=== PATIENT | female | born 1955 | race Caucasian/White ===

== ENCOUNTER → 2016-08-28 | Outpatient (CLI) | payer BC ==
[~2016-08-28] MED LIST: ASMIN/60 INH; BACL10TA PO; CALC1TAB9 PO; CHOL100010 PO; CHOL20007 PO; CLX/20 PO; COEN10CA5 PO; CYCL10TA6 PO; ESTR0.05 TOP; ESTR1DIS TOP; GADAVIST IV PRN; LACT10CA3 PO; LORA10TA5 PO; MAGN500T4 PO; METO25TA3 PO; MULT1CHW4 PO; MXL10 PO; NARA2.5T2 PO; OMEG10007 PO; PRVHFAIN INH; RIBO100T9 PO; SYN75 PO
--- NOTE | 2016-08-28 12:02 | DIAGNOSTIC IMAGING REPORT ---
MRI OF THE BRAIN WITHOUT AND WITH IV CONTRAST CLINICAL HISTORY: Headache, possible migraine. COMPARISON STUDY: No previous studies for comparison. TECHNIQUE: MRI of the brain was performed from the vertex to the skull base utilizing various T1 and T2 weighted sequences. Following the IV administration of 6 mL of Gadavist contrast, additional enhanced images were obtained. FINDINGS: Sagittal T1, axial diffusion, proton density and T2 weighted axial, coronal FLAIR, and pre and post axial T1-weighted images were acquired. These were supplemented with post gadolinium coronal T1 weighted images. No intra or extra-axial mass lesions are visualized. Axial diffusion-weighted images reveal no evidence of acute or subacute infarction. There is no evidence of ventricular dilatation. Proton density T2-weighted and FLAIR images reveal a tiny focus of increased FLAIR signal posterior to the fourth ventricle. There is a second focus of increased signal posterior to the left caudate abutting the left lateral ventricle. These are nonspecific and likely relate to small vessel perivascular change or migraines.. There are no abnormal flow voids. There is no evidence of pathologic enhancement. IMPRESSION: 1. 2 tiny foci of nonspecific increased T2 signal. 2. No evidence of intracranial mass 3. No evidence of acute or subacute infarction Electronically signed by: Darron Leon M.D. 08/28/2016 12:00 PM Dictated Date/Time: 08/28/2016 11:55 AM
== END | disposition home or self-care (01) ==
LOC: C.MRIBC 10:34
PROVIDERS: ATTEND Psychiatry & Neurology Neurology
DX: G43.909 Migraine, unspecified, not intractable, without status migrainosus (principal)

== ENCOUNTER → 2017-04-14 | Day surgery (SDC) | payer BC ==
[2017-03-17 10:12] VITALS: Ht 167 cm; Wt 61.4 kg
[~2017-04-14] VITALS: Ht 167 cm; Wt 61.4 kg
[~2017-04-14] MED LIST changes: +500ML BSS 0.3ML EPI 1:1000PF IRRIG ONE; +ACETAMINOPHEN 325 MG TAB PO PRN; +AMVISC PLUS 0.8ML SYRINGE INT OCU ONE; +ATROPINE SULFATE 0.1 MG/ML 5ML SYR IV PRN; +BSS FLUSH ONE; -CHOL100010 PO; -CYCL10TA6 PO; -ESTR1DIS TOP; +EpHEDrine SULFATE INJ 50 MG/ML AMP IV PRN; +EpINEphrine INJ 1MG/ML AMP 1 MG/ML AMP ONE; -GADAVIST IV PRN; +LACTATED RINGER'S 1000ML 500 ML IV SCH; +LIDOCAINE 3.5% OPH GEL PER APPLICATION CHARGE ONE; +LIDOCAINE HCL 1% MPF 2 ML VIAL ONE; -LORA10TA5 PO; +MIDAZOLAM HCL 1 MG/ML 2ML VIAL ONE; -MXL10 PO; +OCUCOAT 1 ML SOLN IO ONE; +POVIDONE-IODINE OP SOLN 30 ML BTL ONE; +PROPARACAINE 0.5% OP SOLN PER DROP CHARGE OPR SCH; +TOBRAMYCIN/DEXAMETHASONE OPH OINT PER APPLN CHARGE ONE
[2017-04-14] MEDS: PHENYLEPHRINE HCL 2.5% OP SOLN PER DROP CHARGE OPR SCH ×2 (09:44→09:49)
[2017-04-14] MEDS: TROPICAMIDE 1% OP SOLN PER DROP CHARGE OPR SCH ×2 (09:45→09:50)
[2017-04-14] MEDS: CYCLOPENTOLATE HCL 1% OP SOLN PER DROP CHARGE OPR SCH ×2 (09:46→09:52)
[2017-04-14] MEDS: KETOROLAC 0.5% OP SOLN PER DROP CHARGE OPR SCH ×2 (09:47→09:53)
[2017-04-14] MEDS: GATIFLOXACIN OP SOLN PER DROP CHARGE OPR SCH ×2 (09:48→09:59)
--- NOTE | 2017-04-14 10:08 | History & Physical Bridge - SC ---
H&P Re-Evaluation Bridge Note: I have examined the patient, reviewed the History & Physical and in the interval since the performance of the History & Physical I have noted the following changes of clinical significance: No changes noted
--- NOTE | 2017-04-14 10:56 | Discharge Instructions-SurgCtr ---
Discharge Instructions Date of Service Apr 14, 2017. Visit Reason for Visit: Cataract Right Eye Discharge Discharge Diagnosis / Problem: cataract Discharge Goals Goal(s): Improve function Activity Recommendations Activity Limitations: per Instructions/Follow-up section Anesthesia . Post Anesthesia Instructions: If you have had General Anesthesia or IV Sedation: * Do not drive today. * Resume driving when surgeon permits. * Do not make important decisions or sign legal documents today. * Call surgeon for: 1. Temperature elevations greater than 101 degrees F. 2. Uncontrollable pain. 3. Excessive bleeding. 4. Persistent nausea and vomiting. 5. Medication intolerance (nausea, vomiting or rash). * For nausea and vomiting use only clear liquids such as: tea, soda, bouillon until nausea subsides, then gradually increase diet as tolerated. * If you have any concerns or questions, call your surgeon's office. If physician is unavailable and it is an emergency, call 911 or go to the nearest emergency room. . Instructions / Follow-Up Instructions / Follow-Up ACTIVITY RECOMMENDATIONS: * No strenuous lifting, jogging or running for 4 days * No swimming or yard work for 1 week. * Limited bending is permitted, such as putting on shoes. RETURN TO SCHOOL/WORK: No work until seen by physician in office. MEDICATIONS: Resume previous medications unless instructed otherwise by your surgeon. This includes eye drops for glaucoma. Zymaxid/Gatifloxacin (garcia cap) - one drop every 2 hours until bedtime Nevanac/Ilevro/Prolensa/Ketorolac (phillips cap) - one drop every 4 hours until bedtime Prednisolone/Durezol (white/pink cap, SHAKE WELL) - one drop every 2 hours until bedtime Starting tomorrow - all 3 drops every 4 hours until seen in the office Optive drops - as needed for discomfort SPECIAL CARE INSTRUCTIONS: * Wear eyeshield when sleeping, for four nights. * You may wear your own glasses or sunglasses while awake. * You may read or watch TV * You may shower and wash your face, but be gentle around the eye and pat dry. * Blurry vision and mild irritation are normal. * Call office if pain is more severe or vision becomes dark at . FOLLOW UP VISIT: Follow-up with Dr Lee tomorrow. Diet Recommendations Home Diet: resume previous diet Procedures Procedures Performed: Right Cataract Phacoemulsification With Intraocular Lens Implant Pending Studies Studies pending at discharge: no Medical Emergencies . Who to Call and When: Medical Emergencies: If at any time you feel your situation is an emergency, please call 911 immediately. . Non-Emergent Contact Non-Emergency issues call your: Scheduling Assistant . . "Provider Documentation" section prepared by Tejas Lee. .
--- NOTE | 2017-04-14 10:57 | [facility] Operative Report ---
Operative Report Date of Service Apr 14, 2017. Operative Report 1. PREOPERATIVE DIAGNOSIS: Cataract of the right eye. 2. POSTOPERATIVE DIAGNOSIS: Same. 3. PROCEDURE: Phacoemulsification with intraocular lens implantation of the right eye. SURGEON: Dr. Tejas Lee. ANESTHESIA: Topical Lidocaine gel, 1% Non- Preserved intracameral Lidocaine, and monitored intravenous sedation. INDICATIONS FOR THE PROCEDURE: The patient is a 61 - year-old female with a history of cataract of the right eye causing significant visual impairment. The details of the proposed procedure were explained to the patient who asked appropriate questions and following discussion of all risks, benefits and alternatives agreed to have the procedure done. 4. OPERATION AND FINDINGS: DESCRIPTION OF PROCEDURE: After informed consent was obtained, the patient was brought to the Operating Room at the [facility]. The patient was placed in a supine position and then the right eye was prepped and draped in the usual sterile fashion for intraocular surgery. A drop of topical Lidocaine gel was placed in the operative eye. A wire lid speculum was then placed in the fornices. A corneal paracentesis was then created temporally. The Non-Preserved Lidocaine was then instilled into the anterior chamber. The anterior chamber was then pressurized with viscoelastic. A 2.0 mm clear corneal incision was then created temporally. A cystotome was inserted into the anterior chamber and used to create a tear in the anterior lens capsule. This capsular tear was then used to create a small flap and the flap was dragged in a counterclockwise direction in order to create a continuous curvilinear capsulorrhexis. Hydrodissection was accomplished with balanced salt solution. Phacoemulsification of the lens nucleus was then performed in a standard eufwzu-vya-yqqviim technique. The phaco time was 18 seconds with an average power of 10 %. The remaining cortical material was removed using irrigation aspiration. The capsular bag was then filled with viscoelastic. A Bausch & Lomb MI60L +15.0 diopters lens was then loaded into the injector and injected into the capsular bag. The remaining viscoelastic was removed with the irrigation aspiration handpiece. The wound was hydrated and then checked and found to be watertight. The intraocular pressure was checked and found to be adequate. The wire lid speculum was removed and the patient's face was cleaned and dried. TobraDex ointment was placed in the inferior fornix. The patient was discharged to the Recovery Room having tolerated the procedure well. There were no complications. The patient will be seen tomorrow in the office for follow-up. I attest to the content of the Intraoperative Record and any orders documented therein. Any exceptions are noted below.
--- NOTE | 2017-04-14 11:23 | Anesthesia Progress Nt - [facility] ---
Anesthesia Post Op Note Date & Time Apr 14, 2017 at 11:23 Vital Signs Pain Intensity: 0 Vital Signs Past 12 Hours Date Time Temp Pulse Resp B/P (MAP) Pulse Ox O2 Delivery O2 Flow Rate FiO2 04/14/17 10:59 36.6 51 12 122/80 (94) 98 Room Air 04/14/17 09:37 36.5 79 16 103/65 (78) 96 Room Air Notes Mental Status: alert / awake / arousable, participated in evaluation Pt Amnestic to Procedure: Yes Nausea / Vomiting: adequately controlled Pain: adequately controlled Airway Patency, RR, SpO2: stable & adequate BP & HR: stable & adequate Hydration State: stable & adequate Anesthetic Complications: no major complications apparent
[2017-04-14 11:30] VITALS: BP 127/68; PULSE 53; O2SAT 98
== END | disposition home or self-care (01) ==
LOC: X.SURG 09:23
PROVIDERS: ATTEND Ophthalmology
DX: H26.9 Unspecified cataract (principal); J45.909 Unspecified asthma, uncomplicated; E03.9 Hypothyroidism, unspecified; Z90.710 Acquired absence of both cervix and uterus; Z80.1 Family history of malignant neoplasm of trachea, bronchus and lung; Z80.3 Family history of malignant neoplasm of breast

== ENCOUNTER → 2017-04-28 | Day surgery (SDC) | payer BC ==
[2017-04-21 12:47] VITALS: Ht 171.5 cm; Wt 61.4 kg
[~2017-04-28] VITALS: Ht 171.5 cm; Wt 61.4 kg
[~2017-04-28] MED LIST changes: +PHENYLEPHRINE HCL 10% OP SOLN PER DROP CHARGE OPL SCH; +PROPARACAINE 0.5% OP SOLN PER DROP CHARGE OPL SCH; -PROPARACAINE 0.5% OP SOLN PER DROP CHARGE OPR SCH
[2017-04-28] MEDS: PHENYLEPHRINE HCL 2.5% OP SOLN PER DROP CHARGE OPL SCH ×2 (08:37→08:42)
[2017-04-28] MEDS: TROPICAMIDE 1% OP SOLN PER DROP CHARGE OPL SCH ×2 (08:38→08:43)
[2017-04-28] MEDS: CYCLOPENTOLATE HCL 1% OP SOLN PER DROP CHARGE OPL SCH ×2 (08:39→08:44)
[2017-04-28] MEDS: GATIFLOXACIN OP SOLN PER DROP CHARGE OPL SCH ×2 (08:40→08:50)
[2017-04-28] MEDS: KETOROLAC 0.5% OP SOLN PER DROP CHARGE OPL SCH ×2 (08:41→08:45)
--- NOTE | 2017-04-28 08:49 | History & Physical Bridge - SC ---
H&P Re-Evaluation Bridge Note: I have examined the patient, reviewed the History & Physical and in the interval since the performance of the History & Physical I have noted the following changes of clinical significance: Diagnosis: Left Cataract Procedure: Left Cataract Removal with Lens Implant No changes noted
--- NOTE | 2017-04-28 09:34 | Discharge Instructions-SurgCtr ---
Discharge Instructions Date of Service Apr 28, 2017. Visit Reason for Visit: Cataract Left Eye Discharge Discharge Diagnosis / Problem: cataract Discharge Goals Goal(s): Improve function Activity Recommendations Activity Limitations: per Instructions/Follow-up section Anesthesia . Post Anesthesia Instructions: If you have had General Anesthesia or IV Sedation: * Do not drive today. * Resume driving when surgeon permits. * Do not make important decisions or sign legal documents today. * Call surgeon for: 1. Temperature elevations greater than 101 degrees F. 2. Uncontrollable pain. 3. Excessive bleeding. 4. Persistent nausea and vomiting. 5. Medication intolerance (nausea, vomiting or rash). * For nausea and vomiting use only clear liquids such as: tea, soda, bouillon until nausea subsides, then gradually increase diet as tolerated. * If you have any concerns or questions, call your surgeon's office. If physician is unavailable and it is an emergency, call 911 or go to the nearest emergency room. . Diet Recommendations Home Diet: resume previous diet Procedures Procedures Performed: Left Cataract Phacoemulsification With Intraocular Lens Implant Pending Studies Studies pending at discharge: no Medical Emergencies . Who to Call and When: Medical Emergencies: If at any time you feel your situation is an emergency, please call 911 immediately. . Non-Emergent Contact Non-Emergency issues call your: Principal Engineer . . "Provider Documentation" section prepared by Tejas Lee. .
--- NOTE | 2017-04-28 09:35 | [facility] Operative Report ---
Operative Report Date of Service Apr 28, 2017. Operative Report 1. PREOPERATIVE DIAGNOSIS: Cataract of the left eye. 2. POSTOPERATIVE DIAGNOSIS: Same. 3. PROCEDURE: Phacoemulsification with intraocular lens implantation of the left eye. SURGEON: Dr. Tejas Lee. ANESTHESIA: Topical Lidocaine gel, 1% Non- Preserved intracameral Lidocaine, and monitored intravenous sedation. INDICATIONS FOR THE PROCEDURE: The patient is a 61 - year-old female with a history of cataract of the left eye causing significant visual impairment. The details of the proposed procedure were explained to the patient who asked appropriate questions and following discussion of all risks, benefits and alternatives agreed to have the procedure done. 4. OPERATION AND FINDINGS: DESCRIPTION OF PROCEDURE: After informed consent was obtained, the patient was brought to the Operating Room at the [facility]. The patient was placed in a supine position and then the left eye was prepped and draped in the usual sterile fashion for intraocular surgery. A drop of topical Lidocaine gel was placed in the operative eye. A wire lid speculum was then placed in the fornices. A corneal paracentesis was then created temporally. The Non-Preserved Lidocaine was then instilled into the anterior chamber. The anterior chamber was then pressurized with viscoelastic. A 2.0 mm clear corneal incision was then created temporally. A cystotome was inserted into the anterior chamber and used to create a tear in the anterior lens capsule. This capsular tear was then used to create a small flap and the flap was dragged in a counterclockwise direction in order to create a continuous curvilinear capsulorrhexis. Hydrodissection was accomplished with balanced salt solution. Phacoemulsification of the lens nucleus was then performed in a standard [id number]-ulq-obxjeyg technique. The phaco time was 18 seconds with an average power of 9 %. The remaining cortical material was removed using irrigation aspiration. The capsular bag was then filled with viscoelastic. A Bausch & Lomb MI60L +11.0 diopters lens was then loaded into the injector and injected into the capsular bag. The remaining viscoelastic was removed with the irrigation aspiration handpiece. The wound was hydrated and then checked and found to be watertight. The intraocular pressure was checked and found to be adequate. The wire lid speculum was removed and the patient's face was cleaned and dried. TobraDex ointment was placed in the inferior fornix. The patient was discharged to the Recovery Room having tolerated the procedure well. There were no complications. The patient will be seen tomorrow in the office for follow-up. I attest to the content of the Intraoperative Record and any orders documented therein. Any exceptions are noted below.
[2017-04-28 09:37] VITALS: TEMP 36.2
[2017-04-28 10:00] VITALS: BP 105/74; PULSE 61; O2SAT 99
--- NOTE | 2017-04-28 10:01 | Anesthesia Progress Nt - [facility] ---
Anesthesia Post Op Note Date & Time Apr 28, 2017 at 10:01 Vital Signs Pain Intensity: 0 Vital Signs Past 12 Hours Date Time Temp Pulse Resp B/P (MAP) Pulse Ox O2 Delivery O2 Flow Rate FiO2 04/28/17 09:37 36.2 64 20 115/77 (90) 100 Room Air 04/28/17 08:31 36.8 72 16 119/79 (92) 97 Room Air Notes Mental Status: alert / awake / arousable, participated in evaluation Pt Amnestic to Procedure: Yes Nausea / Vomiting: adequately controlled Pain: adequately controlled Airway Patency, RR, SpO2: stable & adequate BP & HR: stable & adequate Hydration State: stable & adequate Anesthetic Complications: no major complications apparent
== END | disposition home or self-care (01) ==
LOC: X.SURG 07:49
PROVIDERS: ATTEND Ophthalmology
DX: H26.9 Unspecified cataract (principal); J45.909 Unspecified asthma, uncomplicated; E03.9 Hypothyroidism, unspecified; Z90.710 Acquired absence of both cervix and uterus

== ENCOUNTER → 2017-05-21 | Outpatient (CLI) | payer BC ==
[~2017-05-21] MED LIST changes: -500ML BSS 0.3ML EPI 1:1000PF IRRIG ONE; -ACETAMINOPHEN 325 MG TAB PO PRN; -AMVISC PLUS 0.8ML SYRINGE INT OCU ONE; -ATROPINE SULFATE 0.1 MG/ML 5ML SYR IV PRN; -BSS FLUSH ONE; -EpHEDrine SULFATE INJ 50 MG/ML AMP IV PRN; -EpINEphrine INJ 1MG/ML AMP 1 MG/ML AMP ONE; -LACTATED RINGER'S 1000ML 500 ML IV SCH; -LIDOCAINE 3.5% OPH GEL PER APPLICATION CHARGE ONE; -LIDOCAINE HCL 1% MPF 2 ML VIAL ONE; -MIDAZOLAM HCL 1 MG/ML 2ML VIAL ONE; -OCUCOAT 1 ML SOLN IO ONE; -PHENYLEPHRINE HCL 10% OP SOLN PER DROP CHARGE OPL SCH; -POVIDONE-IODINE OP SOLN 30 ML BTL ONE; -PROPARACAINE 0.5% OP SOLN PER DROP CHARGE OPL SCH; -TOBRAMYCIN/DEXAMETHASONE OPH OINT PER APPLN CHARGE ONE
== END | disposition home or self-care (01) ==
LOC: C.MAMM 10:26
PROVIDERS: ATTEND Family Medicine
DX: E28.39 Other primary ovarian failure (principal); M85.852 Other specified disorders of bone density and structure, left thigh

== ENCOUNTER → 2017-08-12 | Outpatient (CLI) | payer BC, OTHER ==
--- NOTE | 2017-08-13 12:46 | MAMMOGRAPHY REPORT ---
BILATERAL DIGITAL SCREENING MAMMOGRAM TOMOSYNTHESIS WITH CAD: 08/12/2017 CLINICAL HISTORY: Routine screening. TECHNIQUE: Breast tomosynthesis in addition to standard 2D mammography was performed. Current study was also evaluated with a Computer Aided Detection (CAD) system. COMPARISON: Comparison is made to exams dated: 07/24/2016 mammogram, 07/17/2015 mammogram, 07/13/2014 mammogram, 07/12/2013 mammogram, 07/09/2012 mammogram, and 06/27/2011 mammogram - [facility]. BREAST COMPOSITION: The tissue of both breasts is heterogeneously dense, which may obscure small mas ses. FINDINGS: There is stable asymmetry in the superior posterior left breast, and scattered benign-appe aring microcalcifications bilaterally. No suspicious mass, architectural distortion or cluster of mi crocalcifications is seen. IMPRESSION: ACR BI-RADS CATEGORY 1: NEGATIVE There is no mammographic evidence of malignancy. A 1 year screening mammogram is recommended. The pa tient will receive written notification of the results. Approximately 10% of breast cancers are not detected with mammography. A negative mammographic report should not delay biopsy if a clinically suggestive mass is present. Lisa Mckeon M.D. 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
== END | disposition home or self-care (01) ==
LOC: C.MAMM 14:06
PROVIDERS: ATTEND Family Medicine
DX: Z12.31 Encounter for screening mammogram for malignant neoplasm of breast (principal)

== ENCOUNTER → 2018-03-12 | Outpatient (CLI) | payer OTHER ==
--- NOTE | 2018-03-13 06:44 | PAP/PSG TECHNICIAN REPORT ---
[facility] Dust Operator Polysomnogram Report Study name: None Report date: 03/13/2018 Study date: 03/12/2018 Referring Physician: Cuong Chapman M.D. Name: IRVING VIVAR Interpreting Physician: Cuong Chapman M.D. Date of : 1955 Dust Operator: Ely Sneed RPSGT. Sex: Female Age: 62 Study Type: PSG Weight: 128 lbs 13 in Height: 62 years, Height 5' 6" Neck Circum: BMI: 20.66 Medications: AIMOVIG 70 MG/ML, ALEVE, ASMANEX, BACLOFEN 10 MG, CALCIUM, CITALOPRAM 20 MG, FISH OIL 1000 MG, LEVOTHYROXINE 75 MCG, LORATADINE, MAGNESIUM, METOPROLOL 25 MG, NARATRIPTAN 2.5 MG, RETIN-A 0.05% EX CREAM, VIT D Patient History 62 yr-old female here for a baseline study. She has a history of restless sleep, frequent awakenings, migraine headaches, and waking up at time with a gasping sensation. Her [place] scale is 12. The test was started on room air. ETCO2 testing was not utilized during this study. Room 3 Parameters Monitored NPSG: E1-M2, E2-M1, Fp1-M2, Fp2-M1, F3-M2, F4-M2, F4-M1, C3-M2, C4-M2, C4-M1, O1-M2, O2-M2, O2-M1, T3-M2, T4-M1, P3-M2, P4-M1, CHIN1, CHIN2, HR, EKG, Legs, PFLOW, SNOR, FLOW, CFLOW, Tidal Volume, THOR, ABDO, SpO2, PLTH, CPRESS, ETCO2 Wave, ETCO2, pH Sleep Architecture Sleep Stages Time at Lights Off 9:59:57 PM STAGES Time (min.) TST (%) Time at Lights On 5:26:27 AM Wake 176.0 -- Total Recording Time (TRT) 446.50 min. N1 32.5 12 Total Sleep Period (TSP) 419.5 min. N2 128.0 47 Total Sleep Time (TST) 270.5min. N3 70.5 26 Awake Time 176.0 min. REM 39.5 15 Wake after Sleep Onset 149.0 min. Sleep Efficiency (SE) 61 % Sleep Onset Latency (GAVIN) 27.0 min. Number of Stage 1 Shifts None Awakenings 25 Stage Changes 81 Number of REM periods 1 REM 39.5 15 REM Latency 307.0 min. NREM 231.0 85 Body Position Analysis Supine Right Left Side Prone Vertical Total Sleep Time (min.) 220.4 1.0 111.5 112.50 0.0 0.0 Total Sleep Time (%) 58% 0% 41% 42 0% N/A% Total Sleep Time REM (min.) 0.0 0.0 39.5 None 0.0 0.0 Total Sleep Time NREM (min.) 158.0 1.0 72.0 None 0.0 0.0 Intermittent Wake (min.) 62.4 43.8 69.8 None 0.0 0.0 Total Sleep Period (%) 51% None None None None None Arousals Myoclonus (PLM) * Events Count Index Events Count Index Spontaneous 43 10 Events Awake (PLMW) 107 36.5 Respiratory 6 1.6 Events Asleep w/ Arousal (PLMA) 1 0.2 PLM 1 0 Events Asleep w/o Arousal (PLMS) 34 7.5 Snoring 4 1 Total Asleep 35 7.8 Total 54 12 Total 142 19 Respiratory Analysis * CA OA MA CH H RERA Total Count 0 0 0 0 2 5 2 Index 0.0 0.0 0.0 0 0.4 1 1.6 Mean Duration 0.0 0.0 0.0 0.00 28.8 16.9 20.3 Longest Duration 0.0 0.0 0.0 0.00 0.0 18.6 30.0 Respiratory Event Summary Total Supine ~Supine Right Left Prone REM NREM Apneas Count 0 0 0 0 0 N/A 0 0 Index 0.0 0 0 0.0 0.0 N/A 0 0 Hypopneas (4% Desat) Count 2 2 0 0 0 N/A 0 2 Index 0.4 0.8 0 0.0 0.0 N/A 0.0 0.5 Apneas & All Hypopneas Count 2 2 0 0 0 N/A 0 2 Index 0.4 1 0 0 0 N/A 0.0 0.5 Respiratory Events (Neuropsychiatric Aide+All Hyp+RERA) Count 2 7 0 0 0 N/A 0 2 Index 1.6 3 0 0.0 0.0 N/A 0.0 1.8 Respiratory Related Arousal Count 6 7 0 0 0 N/A 0 7 Index 1.6 3 0 0 0 N/A 0 2 Snoring Analysis Supine Right Left Prone REM NREM Total Snore duration 24.1 min Snores count 684 1 19 N/A 6 698 704 Snore mean duration 2.0 Sec Snores index 260 60 10 N/A 9.1 181.3 156.2 TST with snoring (%) 8.9% Desaturation Event Summary: Minimum %SpO2 Event Count Mean/Min/Max Duration(sec.) Desaturation Index % Time In Bed > 90 6 36.3 / 26.5 / 46.5 0.8 99.9 86 - 90 0 N/A 0.0 0.1 81 - 85 0 N/A 0.0 0.0 76 - 80 0 N/A 0.0 0.0 71 - 75 0 N/A 0.0 0.0 66 - 70 0 N/A 0.0 0.0 61 - 65 0 N/A 0.0 0.0 56 - 60 0 N/A 0.0 0.0 51 - 55 0 N/A 0.0 0.0 < 50 0 N/A 0.0 0.0 Total REM NREM Awake <50% 0.0 min. 0.0 min. 0.0 min. 0.0 min. 51 - 60% 0.0 min. 0.0 min. 0.0 min. 0.0 min. 61 - 70% 0.0 min. 0.0 min. 0.0 min. 0.0 min. 71 - 80% 0.0 min. 0.0 min. 0.0 min. 0.0 min. 81 - 90% 0.4 min. 0.0 min. 0.1 min. 0.3 min. 91 - 100% 436.5 min. 39.5 min. 230.9 min. 166.1 min. Average 94 94 94 95 Minimum SpO2 85 93 90 85 Desaturation Event Index 0.8 0.0 0.5 1.4 # Desat. Events below 89% N/A N/A N/A N/A Time(%) with Saturation below 89% 0.1 0.0 0.0 0.1 Time(min.) with Saturation below 89% 0.2 0.0 0.0 0.2 Time (mins) REM (mins) NREM (mins) % of TST SpO2 Below 90% 1 N/A N1 0.0 SpO2 Below 88% 0 0 0 0 Heart Rate Analysis Min (bpm) Max (bpm) Average (bpm) Awake 52 127 62 NREM 51 68 57 REM 54 65 58 Overall 51 68 57 Supplemental O2 Values Minimum O2 level: None Value Start Time End Time Dust Operator Comments Ms. Vivar slept in the right, left, and supine positions. No cardiac arrhythmias or PLMs noted. No bruxism noted. Snoring was noted and scored as a 2 on a scale of 1 through 5. (0=no snoring, 5=snoring loud enough to be heard through a closed door or down the [address] way). She awoke to use the restroom two times during the night. Ms. Vivar stated that she cannot sleep well in a new place at first. The final report will be interpreted and signed by a sleep physician. The completed physician report will then be placed in the patient medical record. Therapy (cm H2O) 0 TIB (min.) 446.5 TST (min.) 270.5 Sleep Onset (min.) 27.0 REM Onset From Sleep (min.) 307.0 Sleep Efficiency % 61 Wakefulness (%) 39 Wakefulness (min.) 176.0 NREM 1 (%) 12 NREM 1 (min.) 32.5 NREM 2 (%) 47 NREM 2 (min.) 128.0 NREM 3 (%) 26 NREM 3 (min.) 70.5 REM (%) 15 REM (min.) 39.5 # Arousals 54 Arousal Index 12 # Snore 704 Snore Index 156.2 AHI 0.4 AHI Supine 1 AHI Non-Supine 0 NREM AHI 0.5 REM AHI 0.0 RDI 1.6 # Obstructive Apnea 0 # Central Apnea 0 # Mixed Apnea 0 # Hypopneas 2 RERAs 5 Total Respiratory Events 7 Time Below SpO2 89% (min.) 0.0 Mean NREM SpO2 (%) 94 Mean REM SpO2 (%) 94 Mean Sleep SpO2 (%) 94 Min NREM SpO2 (%) 90 Min REM SpO2 (%) 93 Position Supine (min.) 220.4 Position Non-supine (min.) 112.5 LM Index Sleep 7.8 LM Index NREM 8.8 LM Index REM 1.5 Mean Heart Rate (bpm) 57 Min Heart Rate (bpm) 51
--- NOTE | 2018-03-22 10:58 | POLYSOMNOGRAPH REPORT ---
CLINICAL DATA: A 62-year-old female with BMI of 20.7 referred by me, Dr. Childress, and Dr. Hodgson with restless sleep, frequent awakenings, migraine headaches, and waking up with gasping sensations. Her [place] sleepiness score is 12/24. SLEEP ARCHITECTURE: Total sleep period was 419.5 minutes. Total sleep time was 270.5 minutes divided between 231 minutes of non-REM sleep and 39.5 minutes of REM sleep. Sleep onset latency was 27 minutes. REM latency was 307 minutes. Sleep efficiency was 69%. Wake after sleep onset was 149 minutes. Sleep consisted of stage N1 12%, stage N2 47%, stage N3 26%, and REM 15%. AROUSAL DATA: 54 arousals were recorded for an index of 12 per hour. 43 were spontaneous. PLM DATA: There were no significantly elevated limb movements during sleep. There were 35 limb movements during sleep noted for an index of 7.8 per hour with arousal index of 0.2 per hour. RESPIRATORY DATA: There was no evidence of clinically significant sleep apnea. The AHI was 0.4. The RDI was 1.6. There were 2 hypopneic episodes with the mean duration of 28.8 seconds. There were 5 RERAs. The longest RERA was 18.6 seconds. OXIMETRY DATA: No significant hypoxemia was seen. Oxygen crystal was 90% during non-REM sleep. Mean saturation was 94%. EKG: Heart rates ranged from 51 to 68 beats per minute. No arrhythmias were noted. DRIVER'S COMMENTS: Patient slept in the right, left, and supine positions. Snoring was mild, rated 2 on a scale of 1-5. The patient states she has a difficult time sleeping in a new place at first. IMPRESSION: No evidence of clinically significant sleep apnea/hypopnea, nocturnal hypoxemia, abnormal limb movements during sleep to explain this patient's symptoms. RECOMMENDATIONS: Patient should continue to practice good sleep hygiene. ДМИТРИЙ
== END | disposition home or self-care (01) ==
LOC: C.NEUR 21:00
PROVIDERS: ATTEND Internal Medicine Pulmonary Disease
DX: R53.83 Other fatigue (principal); R06.81 Apnea, not elsewhere classified

== ENCOUNTER 2024-01-25 12:22 | Inpatient (IN) ==
[2024-01-25 13:10] LABS: Basophils # (auto) 0.08 K/uL (0.00-0.20); Eosinophils # (auto) 0.28 K/uL (0.00-0.50); Eosinophils % (auto) 3.6 %; Hemoglobin 14.8 g/dl (12.0-16.0); Immature Granulocytes # (auto) 0.03 K/uL (0.01-0.20); Immature Granulocytes % (auto) 0.4 %; Lymphocytes # (auto) 1.91 K/uL (1.20-3.40); Lymphocytes % (auto) 24.5 %; Mean Corpuscular Hemoglobin 29.3 pg (25.0-34.0); Mean Corpuscular Hgb Conc 33.6 g/dL (32.0-36.0); Mean Corpuscular Volume 87.1 fL (80.0-100.0); Mean Platelet Volume 9.1 fL (9.4-12.4); Monocytes # (auto) 0.74 K/uL (0.11-0.59); Monocytes % (auto) 9.5 %; Neutrophils # (auto) 4.76 K/uL (1.40-6.50); Platelet Count 355 K/uL (130-400); RDW Coefficient of Variation 13.4 % (11.5-14.5); RDW Standard Deviation 42.9 fL (36.4-46.3); Red Blood Count 5.05 M/uL (4.20-5.40)
[2024-01-25 13:26] LABS: Albumin Globulin Ratio 1.3 (0.9-2); Albumin Level 4.2 gm/dl (3.4-5.0); BUN Creatinine Ratio 19.7 (10-20); Bilirubin,Total 0.4 mg/dl (0.2-1.0); Calcium 9.7 mg/dl (8.6-10.3); Creatinine Clr Calc Pharmacy 63.8 ml/min; Est GFR (African American) 93.4 ml/min; Est GFR (Non-African American) 80.6 ml/min; Globulin 3.2 gm/dl (2.5-4.0); Potassium 3.9 mmol/L (3.5-5.1); Total Protein 7.4 gm/dl (6.0-8.3)
--- NOTE | 2024-01-25 13:47 | History & Physical Report ---
Date of Service January 25, 2024 Assessment & Plan (1) Infected dog bite: Plan: Bitten by a stranger's dog on 01/04 Failure of outpatient antibiotics (Augmentin x 3 courses, doxycycline x 1 course) Tetanus updated on 01/04, and patient recently completed rabies series No leukocytosis; PCT negative; lactate negative Ceftriaxone 2000 mg IV q24h Metronidazole 500 mg IV q8h Follow blood cx Culture wound as needed Daily wound care Wound care nurse evaluation appreciated Will defer additional imaging at this time given 3 weeks out from dog bite and full active ROM on clinical exam; would obtain additional imaging such as ankle MRI if patient worsens or concerns for tenosynovitis A.m. CBC, BMP (2) Asthma, mild: Plan: Continue Symbicort BID and albuterol as needed (3) Hypothyroidism: Plan: Continue levothyroxine (4) Paroxysmal ventricular tachycardia: Plan: Continue metoprolol Plan Disposition: Admit to [facility] Full code Heart healthy diet VTE PPx: Lovenox 40 mg SQ q24h History of Present Illness Chief Complaint: LLE dog bite Primary Care Provider: Krys Mcduffie DO Juliette is a pleasant 68-year-old female with PMH of allergic rhinitis, migraine, mitral regurgitation, cervicalgia, and asthma. She presented on 01/24 for a dog bite with failure of outpatient antibiotics. She was originally bitten on the left lower extremity on 01/03. Patient did not know the owner spa director of the dog; dog reportedly jumped out of the owners car window and attacked her dog and bit her leg. She was started on a rabies course on Thursday 01/04, and was given tetanus shot and immunoglobulins on 01/04 in the ED. She then recently completed her rabies courts. She was placed on outpatient courses of Augmentin on 01/04, 01/11, and 01/18 as well as doxycycline on 01/18 without much improvement. She has noticed erythema, swelling, and drainage from the puncture sites recently; mainly clear, but she notes some "gunk" 2 days ago. Patient denies pain in her LLE, but does note soreness for which she was initially taking Aleve, but has not been taking anything recently. She has also been applying bacitracin to the puncture site. She took all of her regular morning medications today; no recent change in medications. She denies smoking and tobacco use. She does note occasional alcohol use; wine. Patient's vitals are stable at time of admission. ED course: Ceftriaxone 2000 mg IV Metronidazole 500 mg IV ROS: Patient endorses migraines (ongoing), lightheadedness, intermittent chest palpitations, dry cough, and sore left lower extremity near the puncture site. Patient denies fever, chills, nightsweats, new body aches, dizziness, changes in vision, chest pain, SOB, pleuritic CP, abdominal pain, N/V/D, or numbness/tingling in LLE. Allergies Allergy/AdvReac Type Severity Reaction Status Date / Time Sulfa (Sulfonamide AdvReac Unknown ABDOMINAL Verified 10/21/23 15:55 Antibiotics) BLOATING NSAIDs Allergy Mild Abdominal Uncoded 10/21/23 15:55 pain Home Medications Medication Instructions Recorded Confirmed Type loratadine 10 mg tablet 10 mg PO 03/25/19 01/14/24 History levothyroxine 50 mcg tablet 50 mcg PO DAILY 05/08/19 01/25/24 History omega-3 acid ethyl esters 1 gram 1 cap PO DAILY 05/08/19 01/25/24 History capsule tretinoin 0.05 % topical cream topical Q OTHER DAY 05/08/19 01/14/24 History budesonide-formoterol HFA 160 2 puffs inhalation BID #6 Inhalers 10/27/19 01/25/24 Rx mcg-4.5 mcg/actuation aerosol inhaler (Symbicort) paroxetine HCl 20 mg tablet 10 mg PO DAILY 09/10/21 01/25/24 History naproxen sodium 220 mg capsule PO PRN Pain 02/13/22 01/14/24 History metoprolol tartrate 25 mg tablet 25 mg PO HS 03/05/22 01/25/24 History coenzyme Q10 100 mg capsule 100 mg PO DAILY 04/28/23 01/25/24 History cyclobenzaprine 5 mg tablet 5 mg PO BID PRN muscle spasm #180 04/28/23 01/25/24 Rx tabs rosuvastatin 5 mg tablet 5 mg PO DAILY 04/28/23 01/25/24 History albuterol sulfate 90 mcg/actuation 2 puff inhalation Q4H PRN 10/21/23 01/25/24 Rx aerosol inhaler shortness of breath or wheezing #3 Inhalers galcanezumab-gnlm 120 mg/mL 120 mg subcut MONTHLY 90 days #3 mL 10/30/23 01/25/24 Rx subcutaneous pen injector (Emgality Pen) naratriptan 2.5 mg tablet 2.5 mg PO .COMPLEX #36 tabs 10/30/23 01/25/24 Rx Past Med/Surg History Problem List (Updated 01/23/24 @ 00:08 by Jesus Alberto Denton) Encounter for repeat administration of rabies vaccination (Acute) Infected dog bite (Acute) Dog bite (Acute) Encounter for prophylactic administration of rabies immune globulin (Acute) High risk HPV infection Paroxysmal ventricular tachycardia Asthma, mild (Acute) Cervicalgia Premature ventricular contractions Mitral regurgitation Migraine, unspecified, not intractable, without status migrainosus (Chronic) Menopause (Chronic) Hypothyroidism (Chronic) Chronic tension-type headache, intractable (Chronic) Allergic rhinitis (Chronic) Medical History History of herpes simplex infection Sleep apnea Laceration of finger Surgical History History of tonsillectomy and adenoidectomy History of hysterectomy, supracervical H/O detached retina repair H/O section x2 Family History Mother Atrial fibrillation Father Cancer Lung cancer Aunt Breast cancer Brother CHF (congestive heart failure) Denies family history of Ovarian cancer Colorectal cancer Uterine cancer Social History Smoking Status: Never smoker Do You Dip or Chew Tobacco: No; Hx Alcohol Use: Yes Preferred Language: Irish marital status: Current Living Situation: Spouse current occupational status: retired Feels Safe at Home: Yes Review of Systems 2 Review of Systems: See HPI above Physical Exam 2 Physical Exam: General: no acute distress; pleasant affect; non-toxic appearing; cooperative; SpO2 98% on RA HEENT: normocephalic, atraumatic; no scleral icterus; PERRLA; moist mucus membrane; vision and hearing grossly intact Neck: supple; no lymphadenopathy; trachea midline Skin: warm, dry without signs of tenting; no cyanosis CV: chest wall NTP; RRR; S1/S2 normal; no murmurs/rubs/gallops; pulses intact and symmetric at radial, DP, and PT Lungs: no acute respiratory distress; symmetrical chest wall expansion; clear breath sounds across all lung perez w/o adventitious sounds; no wheezing ABD: Soft, NTP; BS present; no rebound/guarding; no distention LLE: 3 circular puncture wounds noted on the medial aspect of the LLE just above the ankle (see photo below); encircling erythema; clear drainage from the sites; tender to palpation MSK: no tics or fasciculations; no edema noted in the LEs b/l; patient demonstrates ability to wiggle toes, plantarflex/dorsiflex bilaterally without difficulty/pain Neuro: A&Ox3; normal mood and affect; fluent speech; no focal deficits; sensation intact in the LEs b/l, but patient reports he might be slightly diminished on the left lower extremity Results & Data Results & Data Vital Signs (Past 12 Hours) Vital Signs Temp Pulse Pulse Resp BP BP Pulse Ox 01/25/24 13:24 78 18 130/83 98 01/25/24 12:24 36.6 C 80 16 137/83 99 O2 Del Method 01/25/24 13:24 Room Air 01/25/24 12:24 Room Air Laboratory Results Abnormal lab results 01/25/24 Range/Units 12:44 MPV 9.1 L (9.4-12.4) fL [place] # (Auto) 0.74 H (0.11-0.59) K/uL Sodium 135 L (136-145) mmol/L Code Status & VTE Plan Code Status Full code VTE Prophylaxis Plan VTE Prophylaxis will be ordered: Yes Supervising Physician Co-Signing Physician Notes I have personally seen, evaluated and examined the patient. I have also personally discussed the management of the patient with the resident physician/YARED and I agree with the exam findings documented in the history and physical examination and the documented assessment and plan unless otherwise stated below. Brief Exam: In general is a 68-year-old female who is alert and x 3 at time my exam she interacts appropriately. 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 She reports the story as documented above she was bit by a dog trying to attack her dog on , 3 weeks ago today. To complete doses of Augmentin as an outpatient and now currently on Augmentin and doxycycline. Sent in by her primary care provider for further evaluation and treatment for failed outpatient treatment. HEENT: Normocephalic/atraumatic. Heart: Regular rate rhythm no murmur active.. Lungs: Clear bilaterally. Abdomen: Soft and nontender. Extremities: As documented above. No significant edema. Puncture wounds consistent with dog bite left lower extremity proximal to the ankle. No evidence clinically of tenosynovitis or joint involvement. Assessment/plan: As described above. Please refer to orders for further planning. At this time we will do IV Rocephin and IV metronidazole. Patient's tetanus shot is up-to-date she received a tetanus shot approximately 3 weeks ago at her first ER visit. Wound care nurse has been consulted. PG Care Time/CCT Total # of Minutes Spent Total Time Spent with Patient: Total time spent is greater than 50% in coordination of care (as documented) at patient's floor/unit and/or counseling patient: Coding [place] [address] INT INP/OBS CARE 2/55MIN Patient Type Established Medical Decision Making Moderate Complexity Diagnoses Infected dog bite W54.0XXA; L08.9 Asthma, mild J45.909 Hypothyroidism E03.9 Paroxysmal ventricular tachycardia I47.2
[2024-01-25] MEDS: metroNIDAZOLE 500 MG/100 ML BAG IV STA (14:12)
[2024-01-25] MEDS: cefTRIAXone SODIUM 2,000 MG/50 ML BAG IV STA (14:12)
--- NOTE | 2024-01-25 14:42 | Emergency Department Note ---
Impression & Plan Dog bite, Cellulitis ED Provider Note NAME: IRVING GANDHI AGE: 68 SEX: F : 1955 ARRIVES VIA: Walk-In INFORMANT: Patient ED PROVIDER(S): Christophe Vang DO CHIEF COMPLAINT: dog bite HPI: Patient is a 68-year-old female who presents ER for a dog bite. She was seen for this and has been given the rabies series here in the ER. Her tetanus is up-to-date. She notes that she has been on 4 rounds of antibiotics and there is been no improvement and in fact it has worsened recently. She saw her PCP and was referred over. She has surrounding erythema and no drainage. No fevers. No headache or change in vision. No chest pain or shortness of breath. No nausea vomiting or diarrhea. No dysuria urgency or frequency. No other exacerbating or remitting factors ADDITIONAL HISTORY OBTAINED: Per HPI Chronic Medical/Social Conditions Affecting Care: Per HPI PAST MEDICAL HISTORY:See Below PAST SURGICAL HISTORY:See Below FAMILY HISTORY:See Below SOCIAL HISTORY:See Below HOME MEDICATIONS:See Below ALLERGIES:See Below VITALS:See Below PHYSICAL EXAMINATION: GENERAL: Sitting up in bed, alert, well appearing, well nourished, no distress, non-toxic EYE EXAM: normal conjunctiva. OROPHARYNX: mucous membranes are moist LUNGS: Normal chest wall mechanics ABDOMEN: abdomen soft, non-tender, normo-active bowel sounds, no masses, no rebound or guarding. BACK: Back is symmetrical on inspection and there is no deformity, no midline tenderness, no CVA tenderness. SKIN: no rashes and no bruising UPPER EXTREMITIES: upper extremities are grossly normal. LOWER EXTREMITIES: Left posterior calf with 3 bite archibald with mild surrounding erythema. No drainage. No exposed muscle. NEURO EXAM: Normal sensorium, no focal deficit. Ambulates without difficulty MEDICAL DECISION MAKING: Patient is a 68-year-old female who presents the ER for dog bite referred in by PCP. External records were reviewed by the: Shead which shows patient was evaluated in the office and sent in for failure of outpatient antibiotics. IV was established with obtained. Labs show no significant leukocytosis or anemia. BMP along LFTs bilirubin was unremarkable. Pro-Antoni was normal. Patient was given Flagyl and Rocephin. Updated bedside. Discussed the case with the hospitalist for further evaluation management treatment. Consults/Care Managements Discussions: Per MDM Triage Nursing notes reviewed. Limited review of prior medical records performed Vital Signs: reviewed and remarkable for no significant abnormalities Differential diagnosis: Cellulitis, abscess, MRSA infection, DVT, necrotizing fasciitis, dermatitis, drug eruption, allergic reaction, as well as other pathologies. ER treatment provided: See below Diagnostics interpreted by me include EKG and cardiac monitoring as listed below: -ECG: none -Laboratory studies:Interpreted by me as stated above in MDM and shown below. Imaging studies: Xrays: As interpreted by me:none CTs show: none Procedures:none Critical Care: None Past Med/Surg History Problem List (Updated 01/25/24 @ 14:42 by Christophe Vang DO) Cellulitis (Acute) Dog bite (Acute) Encounter for repeat administration of rabies vaccination (Acute) Infected dog bite (Acute) Dog bite (Acute) Encounter for prophylactic administration of rabies immune globulin (Acute) High risk HPV infection Paroxysmal ventricular tachycardia Asthma, mild (Acute) Cervicalgia Premature ventricular contractions Mitral regurgitation Migraine, unspecified, not intractable, without status migrainosus (Chronic) Menopause (Chronic) Hypothyroidism (Chronic) Chronic tension-type headache, intractable (Chronic) Allergic rhinitis (Chronic) Medical History History of herpes simplex infection Sleep apnea Laceration of finger Surgical History History of tonsillectomy and adenoidectomy History of hysterectomy, supracervical H/O detached retina repair H/O section x2 Family History Mother Atrial fibrillation Father Cancer Lung cancer Aunt Breast cancer Brother CHF (congestive heart failure) Denies family history of Ovarian cancer Colorectal cancer Uterine cancer Social History Smoking Status: Never smoker Do You Dip or Chew Tobacco: No; Hx Alcohol Use: Yes Preferred Language: Maltese marital status: Current Living Situation: Spouse current occupational status: retired Feels Safe at Home: Yes Allergies Allergies Allergy/AdvReac Type Severity Reaction Status Date / Time Sulfa (Sulfonamide AdvReac Unknown ABDOMINAL Verified 10/21/23 15:55 Antibiotics) BLOATING NSAIDs Allergy Mild Abdominal Uncoded 10/21/23 15:55 pain Home Meds Home Medications Medication Instructions Recorded Confirmed loratadine 10 mg tablet 10 mg PO 03/25/19 01/14/24 levothyroxine 50 mcg tablet 50 mcg PO DAILY 05/08/19 01/25/24 omega-3 acid ethyl esters 1 gram 1 cap PO DAILY 05/08/19 01/25/24 capsule tretinoin 0.05 % topical cream topical Q OTHER DAY 05/08/19 01/14/24 paroxetine HCl 20 mg tablet 10 mg PO DAILY 09/10/21 01/25/24 naproxen sodium 220 mg capsule PO PRN Pain 02/13/22 01/14/24 metoprolol tartrate 25 mg tablet 25 mg PO HS 03/05/22 01/25/24 coenzyme Q10 100 mg capsule 100 mg PO DAILY 04/28/23 01/25/24 rosuvastatin 5 mg tablet 5 mg PO DAILY 04/28/23 01/25/24 Previous Rx's Medication Instructions Recorded budesonide-formoterol HFA 160 2 puffs inhalation BID #6 Inhalers 10/27/19 mcg-4.5 mcg/actuation aerosol inhaler (Symbicort) cyclobenzaprine 5 mg tablet 5 mg PO BID PRN muscle spasm #180 04/28/23 tabs albuterol sulfate 90 mcg/actuation 2 puff inhalation Q4H PRN 10/21/23 aerosol inhaler shortness of breath or wheezing #3 Inhalers galcanezumab-gnlm 120 mg/mL 120 mg subcut MONTHLY 90 days #3 mL 10/30/23 subcutaneous pen injector (Emgality Pen) naratriptan 2.5 mg tablet 2.5 mg PO .COMPLEX #36 tabs 10/30/23 Results & Data (ED) Vital Signs Vital Signs - 24 hr 01/25/24 12:24 01/25/24 13:24 Temperature 36.6 C Temperature Source Temporal Artery Scan Pulse Rate 80 Pulse Rate [Finger] 78 Respiratory Rate 16 18 Respiratory Effort / Characteristics Non-Labored Spontaneous Non-Labored Spontaneous Respiratory Depth Normal Normal Respiratory Pattern Regular Regular Blood Pressure 137/83 Blood Pressure [Right Arm] 130/83 Blood Pressure Mean 101 Blood Pressure Mean [Right Arm] 98 Blood Pressure Position [Right Arm] Sitting Pulse Oximetry 99 98 Oxygen Delivery Method Room Air Room Air Sepsis Recent Fever Within 48 Hours No Sepsis New/Unexplained Change in Mental Status N/A Sepsis Action Taken by Nursing No Action Required Laboratory Data 01/25/24 12:44 01/25/24 12:44 Lab Results 01/25/24 Range/Units 12:44 WBC 7.80 (4.8-10.8) K/ul RBC 5.05 (4.20-5.40) M/uL Hgb 14.8 (12.0-16.0) g/dl Hct 44.0 (37.0-47.0) % MCV 87.1 (80.0-100.0) fL MCH 29.3 (25.0-34.0) pg MCHC 33.6 (32.0-36.0) g/dL RDW Std Deviation 42.9 (36.4-46.3) fL RDW Coeff of Agustin 13.4 (11.5-14.5) % Plt Count 355 (130-400) K/uL MPV 9.1 L (9.4-12.4) fL Immature Gran % (Auto) 0.4 % Neut % (Auto) 61.0 % Lymph % (Auto) 24.5 % Craven % (Auto) 9.5 % Eos % (Auto) 3.6 % Baso % (Auto) 1.0 % Neut # (Auto) 4.76 (1.40-6.50) K/uL Lymph # (Auto) 1.91 (1.20-3.40) K/uL [place]ven # (Auto) 0.74 H (0.11-0.59) K/uL Eos # (Auto) 0.28 (0.00-0.50) K/uL Baso # (Auto) 0.08 (0.00-0.20) K/uL Immature Gran # (Auto) 0.03 (0.01-0.20) K/uL Sodium 135 L (136-145) mmol/L Potassium 3.9 (3.5-5.1) mmol/L Chloride 101 (98-107) mmol/L Carbon Dioxide 29 (21-32) mmol/L Anion Gap 5 (3-11) BUN 15 (6-23) mg/dl Creatinine 0.76 (0.6-1.2) mg/dl Est Cr Clr Drug Dosing 63.8 ml/min Est GFR ( Amer) 93.4 ml/min Est GFR (Non-Af Amer) 80.6 ml/min BUN/Creatinine Ratio 19.7 (10-20) Glucose 93 (70-99(Fasting)) mg/dl Lactate 0.8 (0.4-2.0) mmol/L Calcium 9.7 (8.6-10.3) mg/dl Total Bilirubin 0.4 (0.2-1.0) mg/dl AST 25 (13-39) U/L ALT 21 (7-52) U/L Alkaline Phosphatase 94 (34-104) U/L Total Protein 7.4 (6.0-8.3) gm/dl Albumin 4.2 (3.4-5.0) gm/dl Globulin 3.2 (2.5-4.0) gm/dl Albumin/Globulin Ratio 1.3 (0.9-2) Procalcitonin < 0.02 (0-0.5) ng/ml Administered Medications Discontinued Medications Ceftriaxone Sodium (Rocephin) 2,000 mg in 50 mls @ 100 mls/hr IV NOW STA Stop: 01/25/24 14:07 Last Admin: 01/25/24 14:12 Dose: 100 mls/hr Documented By: MADDIE Metronidazole (Flagyl) 500 mg in 100 mls @ 100 mls/hr IV NOW STA; Protocol Stop: 01/25/24 14:37 Last Admin: 01/25/24 14:12 Dose: 100 mls/hr Documented By: MADDIE Discharge Plan Visit Data Chief Complaint: Animal Bite Stated Complaint: dog bite ED Provider: Christophe Vang Discharge Problem: Dog bite, Cellulitis Forms Stand Alone Forms: [facility] Prescriptions Prescriptions: No Action budesonide-formoterol [Symbicort] 160-4.5 mcg/actuation HFA aerosol inhaler 2 puffs INH BID Qty: 6 3RF metoprolol tartrate 25 mg tablet 25 mg PO HS rosuvastatin 5 mg tablet 5 mg PO DAILY cyclobenzaprine 5 mg tablet 5 mg PO BID PRN (Reason: muscle spasm) Qty: 180 1RF coenzyme Q10 100 mg capsule 100 mg PO DAILY Emgality Pen 120 mg/mL pen injector 120 mg SQ MONTHLY 90 Days Qty: 3 3RF naratriptan 2.5 mg tablet 2.5 mg PO .COMPLEX Qty: 36 3RF Rx Instructions: 2.5 mg PO AT ONSET OF HEADACHE, MAY REPEAT ONCE IN 2 TO 4 HOURS. LIMIT 3 DAYS PER WEEK.; paroxetine HCl 20 mg tablet 10 mg PO DAILY loratadine 10 mg tablet 10 mg PO levothyroxine 50 mcg tablet 50 mcg PO DAILY omega-3 acid ethyl esters 1 gram capsule 1 cap PO DAILY tretinoin 0.05 % cream topical Q OTHER DAY naproxen sodium 220 mg capsule PO PRN (Reason: Pain) albuterol sulfate 90 mcg/actuation HFA aerosol inhaler 2 puff inhalation Q4H PRN (Reason: shortness of breath or wheezing) Qty: 3 1RF Referrals Referrals: Krys Mcduffie DO [Primary Care Provider] - Discharge Problem: Dog bite Qualifiers: Encounter type: initial encounter Qualified Code(s): W54.0XXA - Bitten by dog, initial encounter Cellulitis Qualifiers: Site of cellulitis: unspecified site Qualified Code(s): L03.90 - Cellulitis, unspecified
[2024-01-25] MEDS ORDERED: ONDANSETRON INJ 2 MG/ML 2 ML VIAL IV PRN (20:57)
[2024-01-25] MEDS ORDERED: ALBUTEROL HFA 8 GM INHALER INH PRN (20:57)
[2024-01-25] MEDS ORDERED: ACETAMINOPHEN 325 MG TAB PO PRN (20:57)
[2024-01-25] MEDS: ENOXAPARIN INJ 40 MG/0.4 ML SYR SQ SCH (22:05)
[2024-01-25] MEDS: PARoxetine HCL 10 MG TAB PO SCH (22:05)
[2024-01-25] MEDS: METOPROLOL TARTRATE 25 MG TAB PO SCH (22:05)
[2024-01-25] MEDS: ROSUVASTATIN CALCIUM 5 MG TAB PO SCH (22:05)
[2024-01-25] MEDS: metroNIDAZOLE 500 MG/100 ML BAG IV SCH (22:36)
[2024-01-25] MEDS: MELATONIN 3 MG TAB PO PRN (23:07)
[2024-01-25] MEDS: CYCLOBENZAPRINE HCL 5 MG TAB PO PRN (23:07)
[2024-01-26] MEDS: FLUTICASONE/VILANTEROL 200/25MCG 14 PUFFS/INHALER INH SCH (00:36)
[2024-01-26] MEDS: LEVOTHYROXINE SODIUM 50 MCG TABLET PO SCH (05:41)
[2024-01-26 07:59] LABS: Basophils # (auto) 0.09 K/uL (0.00-0.20); Basophils % (auto) 1.6 %; Eosinophils # (auto) 0.33 K/uL (0.00-0.50); Eosinophils % (auto) 5.8 %; Hematocrit (blood only) 39.1 % (37.0-47.0); Hemoglobin 13.3 g/dl (12.0-16.0); Immature Granulocytes # (auto) 0.02 K/uL (0.01-0.20); Immature Granulocytes % (auto) 0.4 %; Lymphocytes # (auto) 1.63 K/uL (1.20-3.40); Lymphocytes % (auto) 28.6 %; Mean Corpuscular Hemoglobin 29.3 pg (25.0-34.0); Mean Corpuscular Volume 86.1 fL (80.0-100.0); Mean Platelet Volume 9.3 fL (9.4-12.4); Monocytes # (auto) 0.72 K/uL (0.11-0.59); Monocytes % (auto) 12.6 %; Neutrophils # (auto) 2.91 K/uL (1.40-6.50); Platelet Count 313 K/uL (130-400); RDW Coefficient of Variation 13.2 % (11.5-14.5); Red Blood Count 4.54 M/uL (4.20-5.40)
[2024-01-26 08:21] LABS: BUN Creatinine Ratio 16.9 (10-20); Calcium 8.9 mg/dl (8.6-10.3); Creatinine Clr Calc Pharmacy 68.2 ml/min; Est GFR (African American) 101.4 ml/min; Est GFR (Non-African American) 87.5 ml/min; Potassium 3.7 mmol/L (3.5-5.1)
[2024-01-26] MEDS: cefTRIAXone SODIUM 2,000 MG/50 ML BAG IV SCH (14:06)
--- NOTE | 2024-01-26 16:19 | Hospitalist Progress Note ---
Date of Service January 26, 2024 Assessment & Plan (1) Infected dog bite: Plan: Bitten by a stranger's dog on 01/04. Tetanus 01/04, recently completed rabies series. Has completed multiple rounds of outpatient antibiotics (Augmentin x 3 courses, doxycycline x 1 course) No leukocytosis; PCT negative; lactate negative Blood cultures: negative at 24 hours Continue Ceftriaxone 2000 mg IV q24h and Metronidazole 500 mg IV q8h at this time Wound culture without growth Wound care nurse evaluation appreciated Will obtain CT of leg today to make sure no deeper infection Low suspicion for systemic infection at this time (2) Asthma, mild: Plan: Continue Symbicort BID and albuterol as needed (3) Hypothyroidism: Plan: Continue levothyroxine (4) Paroxysmal ventricular tachycardia: Plan: Continue metoprolol Plan Disposition: continued inpatient stay DVT proh: Lovenox Admission and Anticipated Discharge Date Admission Date: January 25, 2024 Supervising Physician Co-Signing Physician Notes Attending Attestation - Chart reviewed, care plan d/w EL Quevedo. I agree w/ the wolff components of her documentation. Proceed with CT of distal leg to r/o deep infection (abscess, etc) beneath the site of the dog bite. Armando Vasquez MD Subjective Patient seen earlier this morning. Denies fevers, chills, decreased appetite at home. Had some pain that she describes as biting a few days ago but that has improved. Review of Systems Review of Systems: All systems reviewed & are unremarkable except as noted in Subjective Physical Exam Physical Exam: General: NAD, VS as above Resp: normal respiratory effort, lungs clear to auscultation CV: RRR, no murmur, Abd: soft, non tender, no hepatosplenomegaly Extremities: Moves all extremities, no surrounding erythema to wound. See wound picture in chart Results & Data Results & Data Vital Signs (Past 12 Hours) Vital Signs Temp Pulse Resp BP Pulse Ox O2 Del Method 01/26/24 07:34 36.7 C 62 18 119/79 96 Room Air Laboratory Results CBC and chemistry reviewed PG Care Time/CCT Total # of Minutes Spent Total Time Spent with Patient: Total time spent is greater than 50% in coordination of care (as documented) at patient's floor/unit and/or counseling patient: Coding Level of Care Code 83531 SUB INP/OBS CARE 2/35MIN Diagnoses Infected dog bite W54.0XXA; L08.9 Asthma, mild J45.909 Hypothyroidism E03.9 Paroxysmal ventricular tachycardia I47.2
--- NOTE | 2024-01-26 21:16 | CT Scan Report ---
Exam(s): CT EXTREMITY LEFT LOWER Without Contrast EXAM: CT Left Lower Extremity Without Intravenous Contrast CLINICAL HISTORY: Reason for exam: eval for deeper infection, s/p dog bite. TECHNIQUE: Axial computed tomography images of the left lower extremity without intravenous contrast. CTDI is 24 mGy and DLP is 1301 mGy-cm. Automated exposure control was utilized for the study. A dose lowering technique was utilized adhering to the principles of ALARA. COMPARISON: No relevant prior studies available. FINDINGS: Bones/joints: Unremarkable. No acute fracture. No dislocation. Soft tissues: There is serpiginous tissue edema identified most prominently in the left heel and around the left ankle. No soft tissue abscess. No soft tissue air. IMPRESSION: Soft tissue edema in the left heel and around the left ankle. No soft tissue abscess or soft tissue air identified Electronically signed by: Gary Bauer MD 01/26/24 21:15 PM
[2024-01-27 07:48] LABS: Basophils # (auto) 0.07 K/uL (0.00-0.20); Eosinophils # (auto) 0.33 K/uL (0.00-0.50); Eosinophils % (auto) 4.7 %; Hematocrit (blood only) 41.1 % (37.0-47.0); Immature Granulocytes # (auto) 0.02 K/uL (0.01-0.20); Immature Granulocytes % (auto) 0.3 %; Lymphocytes # (auto) 1.74 K/uL (1.20-3.40); Mean Corpuscular Hemoglobin 29.5 pg (25.0-34.0); Mean Corpuscular Hgb Conc 34.1 g/dL (32.0-36.0); Mean Corpuscular Volume 86.5 fL (80.0-100.0); Mean Platelet Volume 9.4 fL (9.4-12.4); Monocytes # (auto) 0.84 K/uL (0.11-0.59); Monocytes % (auto) 12.1 %; Neutrophils # (auto) 3.97 K/uL (1.40-6.50); Neutrophils % (auto) 56.9 %; Platelet Count 323 K/uL (130-400); RDW Coefficient of Variation 13.3 % (11.5-14.5); RDW Standard Deviation 41.9 fL (36.4-46.3); Red Blood Count 4.75 M/uL (4.20-5.40); White Blood Count 6.97 K/ul (4.8-10.8)
[2024-01-27 08:12] LABS: BUN Creatinine Ratio 18.2 (10-20); Creatinine Clr Calc Pharmacy 62.9 ml/min; Est GFR (Non-African American) 79.3 ml/min
--- NOTE | 2024-01-27 12:11 | Discharge Summary ---
Discharge Summary Date of Service January 27, 2024 Principal Dx & Hospital Course #1 = Principal Diagnosis (1) Infected dog bite: Bitten by a stranger's dog on 01/04. Tetanus 01/04, recently completed rabies series. Has completed multiple rounds of outpatient antibiotics (Augmentin x 3 courses, doxycycline x 1 course) No leukocytosis; PCT negative; lactate negative Blood cultures: negative at 24 hours Received ceftriaxone and metronidazole while inpatient. Low suspicion for anaerobic coverage need will discharge with Keflex 3 times daily Wound culture with fungal growthdischarged with Diflucan 100 mg x 7 days Wound care nurse evaluation appreciated * plan to follow patient in the outpatient setting, appointment arranged CT leg: soft tissue edema, no abscess or worsening infection discharged home today (2) Asthma, mild: Continue Symbicort BID and albuterol as needed (3) Hypothyroidism: Continue levothyroxine (4) Paroxysmal ventricular tachycardia: Continue metoprolol Plan Disposition: discharged home today Notes For Next Care Provider wound culture grew Yun, sent with Diflucan. Will continue short course of Keflex. Wound does appears to be improving during her stay, suspect needs good wound care for further improvement Medication Changes From Visit Keflex 3 times daily x 5 days Diflucan 100 mg daily x 7 days Admission HPI Per Admitting Provider Juliette is a pleasant 68-year-old female with PMH of allergic rhinitis, migraine, mitral regurgitation, cervicalgia, and asthma. She presented on 01/24 for a dog bite with failure of outpatient antibiotics. She was originally bitten on the left lower extremity on 01/03. Patient did not know the vice president payer of the dog; dog reportedly jumped out of the owners car window and attacked her dog and bit her leg. She was started on a rabies course on Thursday 01/04, and was given tetanus shot and immunoglobulins on 01/04 in the ED. She then recently completed her rabies courts. She was placed on outpatient courses of Augmentin on 01/04, 01/11, and 01/18 as well as doxycycline on 01/18 without much improvement. She has noticed erythema, swelling, and drainage from the puncture sites recently; mainly clear, but she notes some "gunk" 2 days ago. Patient denies pain in her LLE, but does note soreness for which she was initially taking Aleve, but has not been taking anything recently. She has also been applying bacitracin to the puncture site. She took all of her regular morning medications today; no recent change in medications. She denies smoking and tob acco use. She does note occasional alcohol use; wine. Patient's vitals are stable at time of admission. ED course: Ceftriaxone 2000 mg IV Metronidazole 500 mg IV ROS: Patient endorses migraines (ongoing), lightheadedness, intermittent chest palpitations, dry cough, and sore left lower extremity near the puncture site. Patient denies fever, chills, nightsweats, new body aches, dizziness, changes in vision, chest pain, SOB, pleuritic CP, abdominal pain, N/V/D, or numbness/tingling in LLE. Discharge Exam General: NAD, VS as above Resp: normal respiratory effort, lungs clear to auscultation CV: RRR, no murmur, Abd: soft, non tender, no hepatosplenomegaly Extremities: Moves all extremities, no surrounding erythema to wound. openings are slowly starting to heal, no signs of worsening infection Updated Medication List Medication Instructions Recorded Confirmed Type loratadine 10 mg tablet 10 mg PO QAM 03/25/19 01/25/24 History levothyroxine 50 mcg tablet 50 mcg PO DAILY 05/08/19 01/25/24 History omega-3 acid ethyl esters 1 gram 1 cap PO DAILY 05/08/19 01/25/24 History capsule tretinoin 0.05 % topical cream 1 applic topical Q OTHER DAY 05/08/19 01/25/24 History budesonide-formoterol HFA 160 2 puffs inhalation BID #6 Inhalers 10/27/19 01/25/24 Rx mcg-4.5 mcg/actuation aerosol inhaler (Symbicort) paroxetine HCl 20 mg tablet 10 mg PO HS 09/10/21 01/25/24 History naproxen sodium 220 mg capsule 220 mg PO BID PRN Pain 02/13/22 01/25/24 History metoprolol tartrate 25 mg tablet 25 mg PO HS 03/05/22 01/25/24 History coenzyme Q10 100 mg capsule 100 mg PO DAILY 04/28/23 01/25/24 History cyclobenzaprine 5 mg tablet 5 mg PO BID PRN muscle spasm #180 04/28/23 01/25/24 Rx tabs rosuvastatin 5 mg tablet 5 mg PO HS 04/28/23 01/25/24 History albuterol sulfate 90 mcg/actuation 2 puff inhalation Q4H PRN 10/21/23 01/25/24 Rx aerosol inhaler shortness of breath or wheezing #3 Inhalers galcanezumab-gnlm 120 mg/mL 120 mg subcut MONTHLY 90 days #3 mL 10/30/23 01/25/24 Rx subcutaneous pen injector (Emgality Pen) naratriptan 2.5 mg tablet 2.5 mg PO .COMPLEX PRN Migraine 01/25/24 01/25/24 History Headache cephalexin 500 mg capsule 500 mg PO TID #15 caps 01/27/24 Rx fluconazole 100 mg tablet 100 mg PO DAILY #7 tabs 01/27/24 Rx (Diflucan) Hospital Stay Data Consultations 01/25/24 13:38 ED Decision to Admit Stat Diagnostic Imagining Performed Lower Extremity CT 01/26/24 16:10 Exam(s): CT EXTREMITY LEFT LOWER Without Contrast EXAM: CT Left Lower Extremity Without Intravenous Contrast CLINICAL HISTORY: Reason for exam: eval for deeper infection, s/p dog bite. TECHNIQUE: Axial computed tomography images of the left lower extremity without intravenous contrast. CTDI is 24 mGy and DLP is 1301 mGy-cm. Automated exposure control was utilized for the study. A dose lowering technique was utilized adhering to the principles of ALARA. COMPARISON: No relevant prior studies available. FINDINGS: Bones/joints: Unremarkable. No acute fracture. No dislocation. Soft tissues: There is serpiginous tissue edema identified most prominently in the left heel and around the left ankle. No soft tissue abscess. No soft tissue air. IMPRESSION: Soft tissue edema in the left heel and around the left ankle. No soft tissue abscess or soft tissue air identified Electronically signed by: Gary Bauer MD 01/26/24 21:15 PM Pending Results Patient Have Any Pending Studies at Discharge: Yes (blood cultures ) Discharge Instructions Given to Patient (Per Discharging Provider) Ms. Vivar, You were hospitalized after concerns that your dog bite was getting worse. It has improved with IV antibiotics and wound care. Your wound culture did not grow bacteria, but is growing yeast so we will treat that with a course of Diflucan. Given the improvement you have made here, and my discussion with Dr. Vasquez we will continue a short course of Keflex. You do NOT need to continue the Augmentin and doxycycline that you have at home. Please start the keflex and diflucan today, 01/26. Continue wound care at home and follow up with the wound care clinic * clean wound with saline and pat dry. Apply Aquacel Ag to wounds and secured with OPTi foam. Change daily Blood cultures were taken in the ED, these are negative at 24 hours, but take 5 days to get final results. I do not suspect that these will turn positive as it does not seem like you have a systemic infection, but if for some reason they do, you will be notified. Activity: You can do normal everyday activities as your body allows. Take rest breaks if you feel tired. Do not overexert. Stop activity if you have pain, shortness of breath or feel dizzy. Follow-up appointments: Make an appointment with your primary care physician within one week of discharge. A copy of this summary will be sent to them. Every time you see your primary care physician, or any other doctor, bring your medication list, and a list of questions. CONTACT YOUR PRIMARY CARE PROVIDER if you experience any of the following: Shortness of breath or difficulty breathing Fevers or chills Feeling tired with normal activity or experiencing dizziness or fainting Difficulty following your treatment plan, or difficulty taking medications CALL 911 OR GO TO THE EMERGENCY DEPARTMENT if you experience any of the following: Severe abdominal pain or nausea/vomiting Severe chest pain, or chest pain that radiates (moves) to your jaw or arm Sudden, severe shortness of breath or difficulty breathing Thank you for allowing us to participate in your care. Total Time Total Time Spent Total Time Spent (In Minutes): Time spend day of discharge 32 minutes including direct patient care, medication reconciliation, documentation, review of labs and images, and coordination of care. Coding Level of Care Code 81425 INP/OBS DISCH >30 MIN Diagnoses Infected dog bite W54.0XXA; L08.9 Asthma, mild J45.909 Hypothyroidism E03.9 Paroxysmal ventricular tachycardia I47.2
== END 2024-01-27 13:34 | disposition home or self-care (01) | DRG 603 ==
LOC: ED 12:22 → EDINP 14:15 → SUATTDRO 14:15 → 3N 18:24